=== PATIENT | female | born 1995 | race Asian ===

== ENCOUNTER 2021-06-01 08:14 | Day surgery (SDC) | payer OTHER ==
[2021-05-30 10:52] LABS: COVID AG,FIA SOURCE NASAL SWAB
[~2021-06-01] VITALS: Ht 157.5 cm; Wt 68.1 kg
[~2021-06-01 08:14] MED LIST: SODIUM CHLORIDE 0.9% 1,000 ML IV ONE
[2021-06-01] MEDS ORDERED: LIDOCAINE/PF 2% 5 ML VIAL IM ONE (08:15)
[2021-06-01] MEDS ORDERED: PROPOFOL 1% 20 ML VIAL IVP ONE (08:15)
[2021-06-01] MEDS ORDERED: OXYGEN THERAPY IH SCH (20:00)
== END 2021-06-01 12:10 | disposition home or self-care (01) ==
LOC: SURGERY 08:14
PROVIDERS: ATTEND Specialist
DX: K62.5 Hemorrhage of anus and rectum (principal); K64.8 Other hemorrhoids; K62.89 Other specified diseases of anus and rectum; J45.909 Unspecified asthma, uncomplicated; Z88.0 Allergy status to penicillin; Z79.899 Other long term (current) drug therapy; Z98.890 Other specified postprocedural states
CPT/HCPCS: 45378; 84703; 87426; C9803; J2704; J3490